=== PATIENT | female | born 1930 | race Caucasian/White ===

== ENCOUNTER 2016-10-22 15:04 | Emergency (ER) | payer OTHER ==
[~2016-10-22] VITALS: Ht 152.4 cm; Wt 72.6 kg
[2016-10-22 15:04] VITALS: BP_SYST 120
[~2016-10-22 15:04] MED LIST: CALC-1094 PO; COR3.125 PO; FOLI-43 PO; FURO-150 PO; LOSA50TA3 PO; NEPH PO; SODI650T PO
[2016-10-22 15:40] LABS: RED BLOOD CELL COUNT(AUTO) 3.79 MIL/uL (4.2-6.2)
[2016-10-22 15:49] LABS: ANION GAP 6 (5-15); CALCIUM 8.5 mg/dL (8.4-11.0); CHLORIDE 102 mmol/L (98-107); CREATININE 3.29 mg/dL (0.55-1.30); GLUCOSE 128 mg/dL (70-99); POTASSIUM 3.2 mmol/L (3.5-5.1); SODIUM SERUM 136 mmol/L (136-145); UREA NITROGEN, BLOOD 30 mg/dL (8-21)
[2016-10-22 15:54] LABS: HEMATOCRIT 34.2 % (36-48); HEMOGLOBIN 11.4 g/dL (12.0-16.0); INR 1.2 (0.8-1.2); MEAN CORPUSCULAR HEMOGLOBIN 30 pg (27-31); MEAN CORPUSCULAR HGB CONC 33 % (32-36); MEAN CORPUSCULAR VOLUME 90 fL (79.0-98.0); PLATELET COUNT (AUTO) 105 K/uL (130-430); PROTHROMBIN TIME 13.3 SECS (9.5-12.5); RED CELL DISTRIBUTION WIDTH 22.5 % (9.0-15.0)
[2016-10-22 15:56] LABS: ALANINE AMINOTRANSFERASE 9 U/L (12-78); ALBUMIN 1.8 g/dL (3.4-4.8); ASPARTATE AMINOTRANSFERASE 25 U/L (10-37); TOTAL BILIRUBIN 0.5 mg/dL (0.0-1.0); TOTAL PROTEIN, SERUM 6.6 g/dL (6.4-8.3)
[2016-10-22 16:51] LABS: ATYPICAL LYMPHOCYTES % 0 % (0-0); BAND % (MANUAL) 1 % (0-6); BASOPHILS % (MANUAL) 0 % (0-2); EOSINOPHILS % (MANUAL) 1 % (0-7); LYMPHOCYTES % (MANUAL) 15 % (20-46); MONOCYTES % (MANUAL) 3 % (0-11)
[2016-10-22 18:06] VITALS: BP_SYST 159
[2016-10-23] MEDS ORDERED: AMPI2VIA IV (13:33)
[2016-10-23] MEDS ORDERED: ACET325T53 PO (13:33)
[2016-10-23] MEDS ORDERED: CEFT2VIA5 IV (13:33)
[2016-10-23] MEDS ORDERED: DONE5TAB3 PO (13:33)
[2016-10-23] MEDS ORDERED: LACT1CAP61 PO (13:33)
[2016-10-23] MEDS ORDERED: MIDO5TAB20 PO (13:33)
[2016-10-23] MEDS ORDERED: PARO-41 PO (13:33)
== END 2016-10-22 18:08 | disposition home or self-care (01) ==
LOC: SED 15:04
DX: R55 Syncope and collapse (principal); I13.2 Hypertensive heart and chronic kidney disease with heart failure and with stage 5 chronic kidney disease, or end stage renal disease; N18.6 End stage renal disease; I50.9 Heart failure, unspecified; Z99.2 Dependence on renal dialysis
CPT/HCPCS: 36415; 70450-TC; 80053; 85007; 85027; 85610-TC; 85730-TC; 93005; 99285

== ENCOUNTER 2016-10-23 13:05 | Inpatient (IN) | payer OTHER ==
[2016-06-04 11:53] VITALS: Ht 157.5 cm; Wt 63.5 kg
[~2016-10-23] VITALS: Ht 157.5 cm; Wt 63.5 kg
[2016-10-23 13:05] VITALS: BP 154/78; PULSE 92; RESP 22; TEMP 96.6; O2SAT 97
--- NOTE | 2016-10-23 13:05 | NUR ---
Placed in room 05. Placed on front desk monitor, blood pressure machine and pulse oximeter. To gown for exam. Side rails up. Report given to PRASHANT Andres.
--- NOTE | 2016-10-23 13:26 | NUR ---
pt is awake,alerted oriented x1,pt has hx dementia,baseline is confused.
--- NOTE | 2016-10-23 13:26 | NUR ---
pt had syncopal episode during dialysis,was here yesterday for the same problem. pt awake,alert.no nuro deficit.
--- NOTE | 2016-10-23 13:32 | NUR ---
ER at bedside examining patient.
[2016-10-23] MEDS ORDERED: MIDO5TAB20 PO (13:33)
[2016-10-23] MEDS ORDERED: PARO-41 PO (13:33)
[2016-10-23] MEDS ORDERED: LACT1CAP61 PO (13:33)
[2016-10-23] MEDS ORDERED: DONE5TAB3 PO (13:33)
[2016-10-23] MEDS ORDERED: CEFT2VIA5 IV (13:33)
[2016-10-23] MEDS ORDERED: ACET325T53 PO (13:33)
[2016-10-23] MEDS ORDERED: AMPI2VIA IV (13:33)
--- NOTE | 2016-10-23 13:34 | NUR ---
Medication reconciliation completed with information provided by [facility]. Any prior medication reconciliation on file was reviewed and corrected.
[2016-10-23 13:36] LABS: HEMATOCRIT 32.1 % (36-48); HEMOGLOBIN 10.4 g/dL (12.0-16.0); MEAN CORPUSCULAR HEMOGLOBIN 30 pg (27-31); MEAN CORPUSCULAR HGB CONC 32 % (32-36); MEAN CORPUSCULAR VOLUME 91 fL (79.0-98.0); PLATELET COUNT (AUTO) 69 K/uL (130-430); RED BLOOD CELL COUNT(AUTO) 3.52 MIL/uL (4.2-6.2); RED CELL DISTRIBUTION WIDTH 23.8 % (9.0-15.0); WHITE BLOOD COUNT (AUTO) 13.2 K/uL (4.8-10.8)
[2016-10-23 13:59] LABS: ANION GAP 11 (5-15); CALCIUM 8.3 mg/dL (8.4-11.0); CHLORIDE 102 mmol/L (98-107); CREATININE 3.04 mg/dL (0.55-1.30); GLUCOSE 127 mg/dL (70-99); SODIUM SERUM 139 mmol/L (136-145); UREA NITROGEN, BLOOD 28 mg/dL (8-21)
--- NOTE | 2016-10-23 14:03 | NUR ---
pacemaker to left upper chest.permacath to right upper chest dressing dry and clean. dialysis shunt to right arm,+ thrill and pulse. bilateral legs edema.
[2016-10-23 14:05] LABS: BASOPHILS % (MANUAL) 0 % (0-2); EOSINOPHILS % (MANUAL) 1 % (0-7); LYMPHOCYTES % (MANUAL) 13 % (20-46); MONOCYTES % (MANUAL) 3 % (0-11)
--- NOTE | 2016-10-23 14:05 | NUR ---
2 lumen picc line to left upper arm,easy flush with 10 cc saline,but no blood return.
[2016-10-23 14:07] LABS: ALANINE AMINOTRANSFERASE 13 U/L (12-78); ALBUMIN 1.6 g/dL (3.4-4.8); ASPARTATE AMINOTRANSFERASE 53 U/L (10-37); TOTAL BILIRUBIN 0.4 mg/dL (0.0-1.0); TOTAL PROTEIN, SERUM 5.9 g/dL (6.4-8.3)
[2016-10-23 14:10] LABS: INR 1.3 (0.8-1.2); PROTHROMBIN TIME 13.9 SECS (9.5-12.5)
[2016-10-23 14:22] LABS: POTASSIUM 2.9 mmol/L (3.5-5.1)
--- NOTE | 2016-10-23 15:00 | NUR ---
request to for med rec for [facility] faxed to [phone] confirmation paged obtained
--- NOTE | 2016-10-23 15:16 | NUR ---
at bedside examining patient.
--- NOTE | 2016-10-23 15:25 | NUR ---
DR MCMANUS AT BEDSIDE FOR EVALUATION
[2016-10-23] MEDS ORDERED: ACETAMINOPHEN 325 MG TABLET PO PRN (16:00)
--- NOTE | 2016-10-23 16:00 | NUR ---
Dr. Villagomez discussed plan of care with pt and . Pt requests modified code status which may include intubation, ACLS medication and bipap. No CPR. Code status signed by Dr. Villagomez and placed in chart.
--- NOTE | 2016-10-23 16:02 | NUR ---
MRSA of nares collected and sent to lab
--- NOTE | 2016-10-23 16:04 | NUR ---
Patient will be admitted to [facility]. Admitted to tele unit. Will go to room . Belongings list completed. Summary report printed. Report given to bedside .
--- NOTE | 2016-10-23 16:20 | NUR ---
ADMISSION NOTE Received patient from ER via [facility], received report from RN. Patient admitted with diagnosis of SYNCOPE. Patient oriented to hospital routine, call light, toileting and safety-patient verbalized understanding.
--- NOTE | 2016-10-23 16:26 | NUR ---
CALLED THE NEURO CONSULT TO DR MIN, RE: SYNCOPE. SPOKE TO REBECCA AND THE EAR NOSE AND THROAT SPECIALIST
--- NOTE | 2016-10-23 16:28 | NUR ---
CALLED NEPHROLOGY CONSULT TO DR MEI, DR LARIOS COATING MANAGER, RE: ESRD. SPOKE TO SAMINA
[2016-10-23 16:36] VITALS: BP 154/77; PULSE 72; RESP 16; TEMP 97.8; O2SAT 94
--- NOTE | 2016-10-23 17:24 | NUR ---
DR LARIOS CALLED BACK. ORDERS FOR LABS RECEIVED. INFORMED HIM OF PTS VITAL SIGNS AND OF EDEMA TO BILATERAL LOWER EXTREMITIES. DR SCOTT ALSO CALLED BACK, INFORMED HER THAT DR LARIOS HAD CALLED, AND HAD ORDERED LABS, AND WOULD REEVALUATE NEED FOR HEMODIALYSIS TOMORROW AFTER REVIEWING LABS. Addendum: 10/23/16 at 1834 by Lubna Iglesias RN Also notified of the Lab results.
--- NOTE | 2016-10-23 17:30 | NUR ---
Dr Pamela espinoza
--- NOTE | 2016-10-23 19:30 | NUR ---
CLOSING REPORT BEDSIDE REPORT PROVIDED TO SHARON. PT RESTING COMFORTABLY IN BED. BED IN LOWEST POSITION, BED ALARM SET, AND CALL LIGHT WITHIN REACH.
[2016-10-23 20:00] VITALS: BP 131/68; PULSE 71; RESP 18; TEMP 97.8; O2SAT 93
--- NOTE | 2016-10-23 20:00 | NUR ---
Initial Note Patient in bed at this time resting, respirations even and unlabored. No acute distress noted at this time. Patient denies any pain or discomfort at this time. Shaq cath on the right upper chest, on functioning IV access on the right arm. Picc line on the left upper arm. Call light in hand. Fall and safety precautions in place. Will continue to monitor.
[2016-10-23] MEDS: DONEPEZIL HCL 5 MG TABLET (ARICEPT) PO SCH (20:50)
[2016-10-23] MEDS: MIDODRINE HCL 5 MG TABLET (PROAMATINE) PO SCH (20:50)
[2016-10-23] MEDS ORDERED: LACTOBACILLUS ACIDOPHILUS PO SCH (21:00)
--- NOTE | 2016-10-23 22:53 | NUR ---
RN ROUNDS Patient in bed at this time resting, respirations even and unlabored. No acute distress noted at this time. Patient in no apparent pain or discomfort at this time. Call light in hand. Fall and safety precautions in place. Will continue to monitor.
[2016-10-23 23:42] VITALS: BP 135/70; PULSE 72; RESP 18; TEMP 97.5; O2SAT 94
--- NOTE | 2016-10-24 | NUR ---
RN ROUNDS Patient in bed at this time resting, respirations even and unlabored. No acute distress noted at this time. Patient in no apparent pain or discomfort at this time, no facial grimacing noted. Call light in hand. Fall and safety precautions in place. Will continue to monitor.
--- NOTE | 2016-10-24 02:03 | NUR ---
RN ROUNDS Changed PICC line dressing using aseptic technique, patient toelrated well. Cleaned and changed patient, turning q2 hours as ordered. Patient tolerated well. Call light in hand. Fall and safety precautions in place. Will continue to monitor.
[2016-10-24 03:41] VITALS: BP 100/55; PULSE 69; RESP 18; TEMP 97; O2SAT 94
--- NOTE | 2016-10-24 04:12 | NUR ---
RN ROUNDS Patient in bed at this time resting, respirations even and unlabored. No acute distress noted at this time. Patient in no apparent pain or discomfort at this time. Vital signs stable. Call light in hand. Fall and safety precautions in place. Will continue to monitor.
--- NOTE | 2016-10-24 06:32 | NUR ---
Closing Note Patient in bed at this time resting, respirations even and unlabored. Patient denies any pain at this time. All due meds given, all needs met. Call light in hand. Fall and safety precautions in place. Will continue to monitor. Addendum: 10/24/16 at 0633 by Suzanna Orozco RN Will endorse to day shift nurse.
[2016-10-24 07:06] LABS: HEMATOCRIT 31.6 % (36-48); HEMOGLOBIN 10.1 g/dL (12.0-16.0); MEAN CORPUSCULAR HEMOGLOBIN 29 pg (27-31); MEAN CORPUSCULAR HGB CONC 32 % (32-36); MEAN CORPUSCULAR VOLUME 92 fL (79.0-98.0); PLATELET COUNT (AUTO) 83 K/uL (130-430); RED BLOOD CELL COUNT(AUTO) 3.45 MIL/uL (4.2-6.2); RED CELL DISTRIBUTION WIDTH 23.7 % (9.0-15.0); WHITE BLOOD COUNT (AUTO) 7.6 K/uL (4.8-10.8)
[2016-10-24 08:00] VITALS: BP 148/67; PULSE 63; RESP 18; TEMP 97.3; O2SAT 94
--- NOTE | 2016-10-24 08:00 | NUR ---
initial notes rec patient asleep but arousable to stimuli. with periods of confusion when awake. resp easy and unlabored no acute distress noted. bed in low position and side rails up and locked. call light within reached. will continue to monitor patient.
[2016-10-24 08:26] LABS: ANION GAP 10 (5-15); CALCIUM 8.4 mg/dL (8.4-11.0); CHLORIDE 103 mmol/L (98-107); GLUCOSE 82 mg/dL (70-99); POTASSIUM 3.4 mmol/L (3.5-5.1); SODIUM SERUM 138 mmol/L (136-145); UREA NITROGEN, BLOOD 36 mg/dL (8-21)
[2016-10-24 08:27] LABS: ALANINE AMINOTRANSFERASE 10 U/L (12-78); ALBUMIN 1.6 g/dL (3.4-4.8); ASPARTATE AMINOTRANSFERASE 31 U/L (10-37); PHOSPHORUS 3.9 mg/dL (2.7-4.5); THYROID STIMULATING HORMONE 1.24 uIu/mL (0.34-4.82); TOTAL BILIRUBIN 0.5 mg/dL (0.0-1.0); TOTAL PROTEIN, SERUM 5.9 g/dL (6.4-8.3)
[2016-10-24] MEDS: NEPHROVITE, (FOLIC ACID/VITAMIN B COMP W-C 1 TAB) PO SCH (08:57)
[2016-10-24] MEDS: FOLIC ACID 1 MG TABLET PO SCH (08:57)
[2016-10-24] MEDS: MIDODRINE HCL 5 MG TABLET (PROAMATINE) PO SCH ×2 (08:57→21:03)
[2016-10-24] MEDS: CARVEDILOL 3.125 MG TABLET (COREG) PO SCH (09:00)
[2016-10-24] MEDS ORDERED: cefTRIAXone 2 GM VIAL IV SCH (09:00)
[2016-10-24 09:07] LABS: BASOPHILS % (MANUAL) 0 % (0-2); EOSINOPHILS % (MANUAL) 2 % (0-7); LYMPHOCYTES % (MANUAL) 25 % (20-46); MONOCYTES % (MANUAL) 2 % (0-11)
--- NOTE | 2016-10-24 09:08 | NUR ---
Nutrition Update Rolf Scale 15 noted. Pt admitted for syncopal episode. Diet: cardiac, PRO 40 gms BMI: 25.6 kg/m2 RD to follow per nutrition care standards.
[2016-10-24] MEDS: CEFTRIAXONE SOD 2 GM/ D5W 100 ML IV SCH ×2 (09:54)
--- NOTE | 2016-10-24 09:57 | NUR ---
rounds seen by dr xiong and made him aware of the troponin. echocardio and eeg being done at the bedside at this time. son in the room with the patient.
[2016-10-24] MEDS ORDERED: ALBUMIN HUMAN 25% 200 ML IV PRN (12:00)
[2016-10-24 12:30] VITALS: BP 138/73; PULSE 74; RESP 17; TEMP 97.8; O2SAT 98
--- NOTE | 2016-10-24 14:30 | NUR ---
rounds dialysis started at bedside and family in the room with patient. no acute distress noted.
[2016-10-24 16:08] VITALS: BP 154/73; PULSE 71; RESP 22; TEMP 97; O2SAT 90
--- NOTE | 2016-10-24 17:00 | NUR ---
rounds c/o nausea and dr russell was called covering for dr xiong and waiting to call back. no sob noted.
--- NOTE | 2016-10-24 18:40 | NUR ---
closing notes no c/o nausea vomiting at this time. no acute distress noted. bed in low position and family at bedside.
[2016-10-24 19:40] VITALS: BP 165/65; PULSE 82; RESP 18; TEMP 97.2; O2SAT 96
--- NOTE | 2016-10-24 19:40 | NUR ---
INITIAL NOTE PT. RESTING IN BED WITH EYES CLOSED, VERY SLEEPY AT THIS TIME, BUT AROUSES TO VERBAL STIMULI. FAMILY IS AT THE BEDSIDE. NO S/S OF SOB OR DISTRESS NOTED. NO FACIAL GRIMACING INDICATING ANY PAIN. SINUS RHYTHM, PACED ON THE MONITOR. LEFT UPPER ARM PICC LINE NOTED WITH NO REDNESS OR SWELLING TO THE SITE. IV FLUIDS AT KVO MODE. RIGHT UPPER CHEST SUSAN CATH NOTED. RIGHT ARM SHUNT, BRUIT AND THRILL PRESENT. BILATERAL LOWER EXTREMITY EDEMA NOTED. WILL TURN AND REPOSITION PT. EVERY TWO HOURS THROUGHOUT THE SHIFT. PLAN OF CARE DISCUSSED WITH FAMILY WHO IS AT THE BEDSIDE, VERBALIZE UNDERSTANDING. WILL CONTINUE TO MONITOR THE PT. FOR ANY CHANGES. SAFETY AND FALL PRECAUTIONS IN PLACE. CALL LIGHT IN REACH, BED ALARM ON, SIDE RAILS UP X3. Addendum: 10/24/16 at 2326 by Jocelyn Batista RN *PERMACATIglesia
[2016-10-24] MEDS: DONEPEZIL HCL 5 MG TABLET (ARICEPT) PO SCH (21:03)
[2016-10-24] MEDS: LACTOBACILLUS RHAMNOSUS GG 1 CAP CAPSULE PO SCH (21:03)
--- NOTE | 2016-10-24 22:01 | NUR ---
ROUNDS PT. RESTING IN BED WITH EYES CLOSED. AWAKENS WHEN NAME IS CALLED. NO S/S OF SOB OR DISTRESS. NO FACIAL GRIMACING INDICATING PAIN. PT. REFUSES TO BE TURNED AND REPOSITIONED. DUE TO MENTAL STATUS, NO ABLE TO EDUCATE PT. ON THE IMPORTANCE OF BEING TURNED TO PREVENT BEDSORES. WILL TRY AGAIN AT A LATER TIME. SAFETY AND FALL PRECAUTIONS IN PLACE. CALL LIGHT IN REACH. ALARM ON.
[2016-10-25 00:40] VITALS: BP 148/68; PULSE 80; RESP 16; TEMP 98.4; O2SAT 93
--- NOTE | 2016-10-25 01:00 | NUR ---
NOTES; RECEIVED REPORT FROM BILLIE CERDA. PT IS IN BED, APPEARED TO BE SLEEPING. RESPIRATION EVEN AND UNLABORED. IVF INFUSING WELL. SAFETY MEASURES IN PROGRESS.
--- NOTE | 2016-10-25 03:43 | NUR ---
NOTES; C/O GENERALIZED 3/10 PAIN. TYLENOL 650MG PO CRUSH AND ADMINISTERED WITH APPLE SAUCE.
[2016-10-25 04:23] VITALS: BP 121/80; PULSE 90; RESP 18; TEMP 98.7; O2SAT 93
--- NOTE | 2016-10-25 04:50 | NUR ---
NOTES; RESTING QUIETLY WITH NO APPARENT DISTRESS NOTED. NO SIGNS OR SYMPTOMS OF PAIN NOTED. SAFETY MEASURES IN PROGRESS.
--- NOTE | 2016-10-25 06:25 | NUR ---
NOTES; INCONTINENT OF LOOSE BM AND URINE. BED BATH GIVEN, LINEN CHANGED. REDNESS TO THE BUTTOCKS AND LASHA AREA. Z-GUARD BARRIER CREAM APPLIED. WOUND TO THE SACRAL AREA DRESSING REMOVED. LASHA WOUND IS BROWN, WOUND BASE IS PINK. CLEANSE WOUND WITH NS, HYDROGEL TO WOUND BASE, SKIN BARRIER CREAM TO LASHA WOUND, FOAM DRESSING APPLIED. RT LOWER EXT SKIN TEAR DRESSING REMOVED. WOUND IS PINK. CLEANSE WITH NS, OIL EMULSION TO WOUND BASE. FOAM DRESSING APPLIED. REPOSITIONED FOR COMFORT. SAFETY MEASURES IN PROGRESS. CALL LIGHT WITHIN REACH.
[2016-10-25 07:24] LABS: BASOPHILS % (AUTO) 0.6 % (0.0-2.0); EOSINOPHILS # (AUTO) 0.1 K/uL (0.0-0.4); EOSINOPHILS % (AUTO) 1.6 % (0.0-4.0); HEMATOCRIT 26.5 % (36-48); HEMOGLOBIN 8.8 g/dL (12.0-16.0); LYMPHOCYTES # (AUTO) 1.5 K/uL (1.0-5.5); LYMPHOCYTES % (AUTO) 31.2 % (20.5-51.5); MEAN CORPUSCULAR HEMOGLOBIN 30 pg (27-31); MEAN CORPUSCULAR HGB CONC 33 % (32-36); MEAN CORPUSCULAR VOLUME 90 fL (79.0-98.0); MONOCYTES # (AUTO) 0.3 K/uL (0.0-1.0); MONOCYTES % (AUTO) 5.7 % (1.7-9.3); NEUTROPHILS # (AUTO) 2.9 K/uL (1.8-7.7); NEUTROPHILS % (AUTO) 60.9 % (40.0-70.0); RED BLOOD CELL COUNT(AUTO) 2.94 MIL/uL (4.2-6.2); RED CELL DISTRIBUTION WIDTH 24.3 % (9.0-15.0)
[2016-10-25 07:29] LABS: WHITE BLOOD COUNT (AUTO) 4.8 K/uL (4.8-10.8)
[2016-10-25 07:46] LABS: ALANINE AMINOTRANSFERASE 10 U/L (12-78); ALBUMIN 2.4 g/dL (3.4-4.8); ANION GAP 9 (5-15); ASPARTATE AMINOTRANSFERASE 24 U/L (10-37); CALCIUM 8.1 mg/dL (8.4-11.0); CHLORIDE 102 mmol/L (98-107); CREATININE 3.04 mg/dL (0.55-1.30); GLUCOSE 90 mg/dL (70-99); PHOSPHORUS 3.4 mg/dL (2.7-4.5); POTASSIUM 3.5 mmol/L (3.5-5.1); SODIUM SERUM 139 mmol/L (136-145); TOTAL BILIRUBIN 0.5 mg/dL (0.0-1.0); TOTAL PROTEIN, SERUM 5.6 g/dL (6.4-8.3); UREA NITROGEN, BLOOD 26 mg/dL (8-21)
[2016-10-25 07:53] VITALS: BP 154/78; PULSE 90; RESP 18; TEMP 96.6; O2SAT 93
--- NOTE | 2016-10-25 08:00 | NUR ---
OPENING NOTES RECEIVED PT IN BED, PT IS AAX2, NAME/PLACE, DENIES PAIN. GRENADIAN SPEAKING, CALL LIGHT IN REACH, BED IN LOW POSITION, INSTRUCTED TO CALL FOR ASSIST.
[2016-10-25 08:12] LABS: PLATELET COUNT (AUTO) 98 K/uL (130-430)
[2016-10-25] MEDS: CEFTRIAXONE SOD 2 GM/ D5W 100 ML IV SCH ×2 (08:26)
[2016-10-25] MEDS: FOLIC ACID 1 MG TABLET PO SCH (08:26)
[2016-10-25] MEDS: NEPHROVITE, (FOLIC ACID/VITAMIN B COMP W-C 1 TAB) PO SCH (08:27)
[2016-10-25] MEDS: CARVEDILOL 3.125 MG TABLET (COREG) PO SCH (08:27)
[2016-10-25] MEDS: LACTOBACILLUS RHAMNOSUS GG 1 CAP CAPSULE PO SCH ×2 (08:27→21:15)
[2016-10-25] MEDS: CALCIUM CARBONATE/VITAMIN D3 1 TAB TABLET PO SCH (08:27)
[2016-10-25] MEDS: MIDODRINE HCL 5 MG TABLET (PROAMATINE) PO SCH ×2 (08:28→21:15)
--- NOTE | 2016-10-25 10:00 | NUR ---
NOTES PT IN BED, DENIES PAIN. SINHALA SPEAKING, BREAKFAST RE OFFERED BUT REFUSED.CALL LIGHT IN REACH, BED IN LOW POSITION, INSTRUCTED TO CALL FOR ASSIST
--- NOTE | 2016-10-25 12:00 | NUR ---
NOTES, PT IN BED, DENIES PAIN. KAZAKH SPEAKING, CALL LIGHT IN REACH, BED IN LOW POSITION, INSTRUCTED TO CALL FOR ASSIST
[2016-10-25 12:04] VITALS: BP 110/78; PULSE 69; RESP 16; TEMP 97.6; O2SAT 97
--- NOTE | 2016-10-25 14:00 | NUR ---
NOTES OT IN BED, DENIES PAIN. , CALL LIGHT IN REACH, BED IN LOW POSITION, INSTRUCTED TO CALL FOR ASSIST.
--- NOTE | 2016-10-25 16:00 | NUR ---
NOTES PT IN BED, DENIES PAIN. NO SOB, NO DISTRESS , CALL LIGHT IN REACH, BED IN LOW POSITION, INSTRUCTED TO CALL FOR ASSIST.
[2016-10-25 16:25] VITALS: BP 126/71; PULSE 72; RESP 17; TEMP 98.2; O2SAT 96
--- NOTE | 2016-10-25 18:00 | NUR ---
NOTES PT 'S FAMILY AT BEDSIDE, ASSISTING PT WITH DINNER, PT HAS NO C/O PAIN. NO SOB, NO DISTRESS THIS TIME. WILL CONTINUE TO MONITOR.
--- NOTE | 2016-10-25 18:51 | NUR ---
CLOSING NOTES, PT REMAIN ALERT AND ORIENTED, NO SOB, NO C/O PAIN, NO DISTRESS DURING THE SHIFT, IV PICC LINE INTACT, PERMACATH INTACT, WILL ENDORSE TO NIGHT RN.
--- NOTE | 2016-10-25 19:50 | NUR ---
NOTES; SEEN PT IN BED, A/A/O X3 WITH PERIOD OF FORGETFULNESS. NO ACUTE DISTRESS NOTED. VITAL SIGNS STABLE, AFEBRILE. ABDOMEN SOFT NONDISTENDED WITH ACTIVE BOWEL SOUNDS. PICC LINE TO THE LEFT UPPER ARM, DRESSING CLEAN,DRY, AND INTACT. PORT-A-CATH TO THE RT CHEST WALL WITH DRESSING CLEAN,DRY, AND INTACT. REDNESS TO THE BUTTOCKS AND LASHA AREA. Z-GUARD BARRIER CREAM PRESENT. WOUND TO THE SACRAL AND LEFT LEG WITH DRESSING CLEAN,DRY, AND INTACT. NINA UPPER AND LOWER EXT BRUISES NOTED. 4+ PITTING EDEMA TO NINA LOWER EXT. DENIES ANY PAIN AT THIS TIME. FAMILY AT BEDSIDE WITH GOOD SUPPORT. REPOSITIONED FOR COMFORT. SAFETY MEASURES IN PROGRESS. CALL
[2016-10-25 19:59] VITALS: BP 156/66; PULSE 77; RESP 20; TEMP 98.3; O2SAT 93
[2016-10-25] MEDS: DONEPEZIL HCL 5 MG TABLET (ARICEPT) PO SCH (21:15)
--- NOTE | 2016-10-25 21:20 | NUR ---
NOTES; SCHEDULED PO MEDICATION CRUSHED AND GIVEN WITH APPLE SAUCE. PT TOLERATED MEDS WELL.
--- NOTE | 2016-10-25 23:00 | NUR ---
NOTES; RESTING QUIETLY, NO APPARENT DISTRESS NOTED. NO SIGNS OR SYMPTOMS OF PAIN OR DISCOMFORT NOTED. REPOSITIONED. ELEVATED LOWER EXT ON PILLOW SUPPORT. SAFETY MEASURES IN PROGRESS.
[2016-10-26 00:54] VITALS: BP 128/72; PULSE 71; RESP 16; TEMP 98.9; O2SAT 98
--- NOTE | 2016-10-26 04:50 | NUR ---
NOTES; INCONTINENT OF LOOSE FOUL BM. LASHA CARE PROVIDED. REDNESS TO THE LASHA AND SACRAL AREA. Z-GUARD APPLIED TO REDDENED AREA. REPOSITIONED. SAFETY MEASURES IN PROGRESS.
[2016-10-26 05:51] VITALS: BP 119/63; PULSE 61; RESP 18; TEMP 98.7; O2SAT 97
--- NOTE | 2016-10-26 06:30 | NUR ---
NOTES; BED BATH GIVEN, LINEN CHANGED. REDNESS TO THE BUTTOCKS AND LASHA AREA. Z-GUARD BARRIER CREAM APPLIED. WOUND TO THE SACRAL AREA DRESSING REMOVED. LASHA WOUND IS BROWN, WOUND BASE IS PINK. CLEANSE WOUND WITH NS, HYDROGEL TO WOUND BASE, SKIN BARRIER CREAM TO LASHA WOUND, FOAM DRESSING APPLIED. REPOSITIONED FOR COMFORT. DENIES ANY PAIN AT THIS TIME. ALL NEEDS ATTENDED. SAFETY MEASURES IN PROGRESS. CALL LIGHT WITHIN REACH.
[2016-10-26 08:00] VITALS: BP 137/62; PULSE 76; RESP 19; TEMP 97.4; O2SAT 94
--- NOTE | 2016-10-26 08:12 | NUR ---
OPENING NOTE RECEIVED REPORT FROM NIGHT NURSE, PATIENT IS RESTING COMFORTABLY WITH NO COMPLAINTS OF PAIN, NO NOTED DISTRESS, DISCOMFORT OR SOB. PATIENT IS ALERT AND ORIENTED BUT HAS MOMENTS OF CONFUSION. PATIENT SPEAKS MALAY ONLY BUT CAN COMMUNICATE NEEDS TO STAFF. BED IS IN LOWEST POSITION AND CALL LIGHT IS WITHIN REACH. BED ALARM IS ON AND WILL CONTINUE TO MONITOR.
[2016-10-26] MEDS: FOLIC ACID 1 MG TABLET PO SCH (09:34)
[2016-10-26] MEDS: MIDODRINE HCL 5 MG TABLET (PROAMATINE) PO SCH (09:34)
[2016-10-26] MEDS: CARVEDILOL 3.125 MG TABLET (COREG) PO SCH (09:34)
[2016-10-26] MEDS: LACTOBACILLUS RHAMNOSUS GG 1 CAP CAPSULE PO SCH (09:34)
[2016-10-26] MEDS: CALCIUM CARBONATE/VITAMIN D3 1 TAB TABLET PO SCH (09:34)
[2016-10-26] MEDS: NEPHROVITE, (FOLIC ACID/VITAMIN B COMP W-C 1 TAB) PO SCH (09:34)
[2016-10-26] MEDS: CEFTRIAXONE SOD 2 GM/ D5W 100 ML IV SCH ×2 (09:35)
--- NOTE | 2016-10-26 10:50 | NUR ---
NOTE PATIENT IS RESTING COMFORTABLY IN BED WITH NO COMPLAINTS OF PAIN, NO NOTED DISTRESS, DISCOMFORT OR SOB. PATIENT'S VITAL SIGNS WERE WITHIN NORMAL RANGE AND ALL MORNING MEDICATIONS WERE GIVEN. BED ALARM IS ON AND BED IS IN LOWEST POSITION. CALL LIGHT IS WITHIN REACH AND FAMILY IS AT BEDSIDE. WILL CONTINUE TO MONITOR.
[2016-10-26 12:01] VITALS: BP 139/76; PULSE 67; RESP 20; TEMP 98.2; O2SAT 97
--- NOTE | 2016-10-26 12:12 | NUR ---
NOTE PATIENT IS RESTING COMFORTABLY IN BED WITH NO COMPLAINTS OF PAIN, NO NOTED DISTRESS, DISCOMFORT OR SOB. PATIENT WAS REPOSITIONED AND TOLERATED WELL. BED ALARM IS ON AND BED IS IN LOWEST POSITION. CALL LIGHT IS WITHIN REACH AND WILL CONTINUE TO MONITOR
--- NOTE | 2016-10-26 13:23 | NUR ---
DC PLANNING: RECEIVED DC ORDER TO [facility] TODAY FROM DR. MCMANUS. CALLED AND S/W GABY-DAUGHTER TEL# [phone], ASKED HER THE NAME OF THE SN[facility] -[facility]. CALLED /FAXED TO [facility] ( [place]) TEL# [phone]; FAX# [phone], SHE GAVE ROOM# 104 BED 3. PLS GIVE REPORT TO RN SAME TEL#. ARRANGED S TRANSPORTATION VIA [facility] TEL# . ADULT EDUCATION INSTRUCTOR TIME 1500, PACKET AT THE NURSE'S STATION, TO NOTIFY AVELINO CERDA.
--- NOTE | 2016-10-26 13:52 | NUR ---
NOTE DR MCMANUS WAS IN TO SEE THE PATIENT AND NEW ORDER FOR DISCHARGE BACK TO NURSING FACILITY, DAUGHTER IS AT BEDSIDE AND IS AWARE OF THE TRANSFER. THE PATIENT WILL BE RETURNING TO [facility]. DISCHARGE PAPERWORK WILL BE STARTED AND EDUCATION WILL BE PROVIDED TO THE PATIENT. WILL CALL AND GIVE REPORT TO NURSE THERE. BED IS IN LOWEST POSITION AND CALL LIGHT IS WITHIN REACH. WILL CONTINUE TO MONITOR.
[2016-10-26 14:13] VITALS: BP 137/92; PULSE 71; RESP 19; TEMP 97.4; O2SAT 94
--- NOTE | 2016-10-26 15:28 | NUR ---
DISCHARGE DISCHARGE INSTRUCTIONS WERE GIVEN TO THE FAMILY AT BEDSIDE AND PATIENT, PATIENT IS UNABLE TO SIGN. PICTURES WERE TAKEN OF THE WOUNDS ON THE RIGHT LEG AND SACRUM. WOUND CARE WAS PROVIDED WELL, THE WOUNDS WERE CLEANED WITH NS, PAT DRIED, HYDROGEL WAS APPLIED TO WOUND AND FOAM DRESSING WAS APPLIED, ON THE SACRUM THE WOUND WAS CLEANED WITH NS AND PAT DRIED, Z GUARD WAS APPLIED TO PERIWOUND AND HYDROGEL WAS APPLIED TO THE WOUND AND FOAM DRESSING WAS APPLIED. THE ARMBAND WAS REMOVED AND A NEW ARMBAND WAS APPLIED. [facility] CALLED AND STATED THAT THEY WILL LATE TO FELT COVERER THE PATIENT. 1600 WAS GIVEN. THE PATIENT WAS CHANGED AND CLEANED AND ORANGE LINEN AND AND GOWN WAS REPLACED. WILL WAIT FOR TRANSPORTATION.
[2016-10-26 16:07] VITALS: BP 140/71; PULSE 68; RESP 18; TEMP 99.3; O2SAT 97
--- NOTE | 2016-10-26 18:05 | NUR ---
DISCHARGE EMT IS HERE TO ECHOCARDIOGRAPHY TECH PATIENT, PATIENT IS LEAVING IN STABLE CONDITION WITH ALL BELONGINGS ARE TAKEN WITH THE PATIENT.
== END 2016-10-26 18:10 | DRG 193 ==
LOC: SED 13:05 → STU 15:35
PROVIDERS: ADMIT Internal Medicine Cardiovascular Disease; ATTEND Internal Medicine Cardiovascular Disease
PROC: 5A1D00Z (ICD-10-PCS; principal; 2016-10-24)
DX: J18.9 Pneumonia, unspecified organism (principal); N18.6 End stage renal disease; E43 Unspecified severe protein-calorie malnutrition; G82.20 Paraplegia, unspecified; I13.2 Hypertensive heart and chronic kidney disease with heart failure and with stage 5 chronic kidney disease, or end stage renal disease; R55 Syncope and collapse; I50.9 Heart failure, unspecified; Z66 Do not resuscitate; L08.9 Local infection of the skin and subcutaneous tissue, unspecified; G62.9 Polyneuropathy, unspecified; F03.90 Unspecified dementia, unspecified severity, without behavioral disturbance, psychotic disturbance, mood disturbance, and anxiety; Z96.643 Presence of artificial hip joint, bilateral; R29.6 Repeated falls; E87.6 Hypokalemia; E88.09 Other disorders of plasma-protein metabolism, not elsewhere classified; I95.9 Hypotension, unspecified; D63.1 Anemia in chronic kidney disease; G40.909 Epilepsy, unspecified, not intractable, without status epilepticus; I49.3 Ventricular premature depolarization; Z74.01 Bed confinement status; Z79.899 Other long term (current) drug therapy; Z95.0 Presence of cardiac pacemaker; Z99.2 Dependence on renal dialysis; Z68.25 Body mass index [BMI] 25.0-25.9, adult
CPT/HCPCS: 36415; 70450-TC; 71010; 80053; 83880; 84100-TC; 84443-TC; 84484; 85007; 85025; 85027; 85610-TC; 85730-TC; 87081; 90935; 93005; 93306; 95816; 99285; J0696; J7030; J7050; J7060; P9046

== ENCOUNTER 2016-12-03 14:40 | Emergency (ER) | payer OTHER ==
[~2016-12-03] VITALS: Ht 154.9 cm; Wt 65.8 kg
[2016-12-03 14:40] VITALS: BP_SYST 78
[~2016-12-03 14:40] MED LIST changes: +ACET325T53 PO; +AMPI2VIA IV; +CEFT2VIA5 IV; +DONE5TAB3 PO; -FURO-150 PO; +LACT1CAP61 PO; -LOSA50TA3 PO; +MIDO5TAB20 PO; +PARO-41 PO; -SODI650T PO
[2016-12-03] MEDS ORDERED: NS 500 ML IV ONE (15:30)
[2016-12-03 15:57] LABS: BASOPHILS # (AUTO) 0.1 K/uL (0.0-0.2); BASOPHILS % (AUTO) 0.6 % (0.0-2.0); EOSINOPHILS # (AUTO) 0.1 K/uL (0.0-0.4); HEMATOCRIT 22.9 % (36-48); HEMOGLOBIN 7.2 g/dL (12.0-16.0); MEAN CORPUSCULAR HEMOGLOBIN 30 pg (27-31); MEAN CORPUSCULAR HGB CONC 31 % (32-36); MEAN CORPUSCULAR VOLUME 96 fL (79.0-98.0); MONOCYTES # (AUTO) 0.5 K/uL (0.0-1.0); RED CELL DISTRIBUTION WIDTH 21.2 % (9.0-15.0); WHITE BLOOD COUNT (AUTO) 9.5 K/uL (4.8-10.8)
[2016-12-03 16:01] LABS: EOSINOPHILS % (AUTO) 0.9 % (0.0-4.0); LYMPHOCYTES # (AUTO) 3.4 K/uL (1.0-5.5); LYMPHOCYTES % (AUTO) 36.3 % (20.5-51.5); NEUTROPHILS # (AUTO) 5.4 K/uL (1.8-7.7); NEUTROPHILS % (AUTO) 57.2 % (40.0-70.0); PLATELET COUNT (AUTO) 298 K/uL (130-430); RED BLOOD CELL COUNT(AUTO) 2.39 MIL/uL (4.2-6.2)
[2016-12-03 16:03] LABS: CALCIUM 8.1 mg/dL (8.4-11.0); CHLORIDE 102 mmol/L (98-107); CREATININE 2.06 mg/dL (0.55-1.30); GLUCOSE 158 mg/dL (70-99); POTASSIUM 3.2 mmol/L (3.5-5.1); SODIUM SERUM 134 mmol/L (136-145); UREA NITROGEN, BLOOD 27 mg/dL (8-21)
[2016-12-03 16:07] LABS: ANION GAP < 3 (5-15); INR 1.2 (0.8-1.2); PROTHROMBIN TIME 12.5 SECS (9.5-12.5)
[2016-12-03 17:30] VITALS: BP_SYST 102
== END 2016-12-03 17:30 | disposition home or self-care (01) ==
LOC: SED 14:40
DX: S80.822A Blister (nonthermal), left lower leg, initial encounter (principal); I13.2 Hypertensive heart and chronic kidney disease with heart failure and with stage 5 chronic kidney disease, or end stage renal disease; N18.6 End stage renal disease; I50.9 Heart failure, unspecified; Z99.2 Dependence on renal dialysis; Z95.0 Presence of cardiac pacemaker; X58.XXXA Exposure to other specified factors, initial encounter; Y93.89 Activity, other specified; Y92.89 Other specified places as the place of occurrence of the external cause; Y99.8 Other external cause status
CPT/HCPCS: 36415; 80048; 85025; 85610; 86886; 86900; 86901; 96360; 99284; J7040